=== PATIENT | male | born 1945 | race Caucasian/White ===

== ENCOUNTER 2018-11-16 08:05 | Day surgery (SDC) | payer BC ==
[2018-11-16 08:43] LABS: CALCIUM, SERUM 8.9 mg/dL (8.5-10.1); CARBON DIOXIDE 27 mmol/L (21-32); CHLORIDE 107 mmol/L (98-107); CREATININE 1.3 mg/dL (0.6-1.3); GLUCOSE 112 mg/dL (74-106); POTASSIUM 3.7 mmol/L (3.5-5.1); SODIUM SERUM 141 mmol/L (136-145); UREA NITROGEN, BLOOD 19 mg/dL (7-18)
[2018-11-16 08:47] LABS: BASOPHILS # (AUTO) 0.1 /CMM (0.0-0.2); BASOPHILS % (AUTO) 1.3 % (0.0-2.0); EOSINOPHILS % (AUTO) 5.8 % (0.0-6.0); HEMATOCRIT 44 % (39-51); HEMOGLOBIN 14.9 g/dL (13.5-17.5); LYMPHOCYTES # (AUTO) 1.6 /CMM (0.8-4.8); LYMPHOCYTES % (AUTO) 20.4 % (20.0-44.0); MEAN CORPUSCULAR HGB CONC 34 g/dl (31.0-36.0); MEAN CORPUSCULAR VOLUME 93 fL (80-96); MONOCYTES # (AUTO) 0.7 /CMM (0.1-1.30); MONOCYTES % (AUTO) 9.5 % (2.0-12.0); NEUTROPHILS # (AUTO) 4.8 /CMM (1.8-8.9); PLATELET COUNT (AUTO) 233 /CMM (150-450); RED BLOOD CELL COUNT(AUTO) 4.73 MIL/uL (4.5-6.0); WHITE BLOOD COUNT (AUTO) 7.6 K/uL (4.3-11.0)
[2018-11-16 08:50] LABS: ALANINE AMINOTRANSFERASE 54 U/L (12-78); ALBUMIN 3.8 g/dL (3.4-5.0); ALKALINE PHOSPHATASE 77 U/L (46-116); ASPARTATE AMINOTRANSFERASE 22 U/L (15-37); BILIRUBIN,TOTAL 0.5 mg/dL (0.2-1.0); TOTAL PROTEIN, SERUM 7.1 g/dL (6.4-8.2)
[2018-11-16] MEDS ORDERED: MIDAZOLAM HCL 2 MG/2ML VIAL ONE (09:20)
[2018-11-16] MEDS ORDERED: FENTANYL PF 100MCG/2ML AMPUL ONE (09:20)
== END 2018-11-16 11:00 | disposition home or self-care (01) ==
LOC: DS 08:05
PROVIDERS: ATTEND Internal Medicine Interventional Cardiology
DX: R55 Syncope and collapse (principal); I10 Essential (primary) hypertension; G47.39 Other sleep apnea; E66.8 Other obesity; Z68.38 Body mass index [BMI] 38.0-38.9, adult; Z98.890 Other specified postprocedural states
CPT/HCPCS: 33285; C1764; 36415; 71045-TC; 80053-TC; 85025-TC; J0690; J2250; J3010